=== PATIENT | female | born 1960 | race Caucasian/White ===

== ENCOUNTER 2021-11-10 19:50 | Emergency (ER) | payer OTHER ==
[2021-11-10] MEDS ORDERED: SODIUM CHLORIDE 1,000 ML IV STA (20:15)
[2021-11-10] MEDS ORDERED: ACETAMINOPHEN 1000 MG/100 ML BAG IVPB ONE (20:15)
[2021-11-10] MEDS ORDERED: FAMOTIDINE 20 MG/50 ML IVPB 20 MG/50 ML MG IVPB ONE ×2 (20:15→20:22)
[2021-11-10] MEDS ORDERED: ACETAMINOPHEN INJECTION 100 ML IVPB ONE (20:16)
[2021-11-10 20:17] VITALS: BP 148/93; PULSE 87; RESP 16; TEMP 98.7; BMI 27.4
[2021-11-10 20:23] LABS: HEMATOCRIT 41.6 % (32.4-45.2); HEMOGLOBIN 14.1 G/dL (10.7-15.3); MEAN CELL VOLUME 94.1 fl (80-96); MEAN PLT VOLUME 8.2 fl (7.5-11.1); RBC 4.42 10^6/uL (3.60-5.2); RDW 14.8 % (11.6-15.6); WHITE BLOOD COUNT 11.1 10^3/uL (4.0-10.8)
[2021-11-10 20:35] LABS: ALBUMIN 4.1 g/dl (3.4-5.0); ALK PHOS 86 U/L (45-117); ANION GAP 7 MMOL/L (8-16); BILIRUBIN,TOTAL 0.5 mg/dl (0.2-1); CALCIUM 9.3 mg/dl (8.5-10); CHLORIDE 104 mmol/L (98-107); CO2 26 mmol/L (21-32); CREATININE 0.9 mg/dl (0.55-1.3); GLUCOSE,RANDOM 119 mg/dl (74-106); SGOT/AST 16 U/L (15-37); SGPT/ALT 13 U/L (13-61); SODIUM 137 mmol/L (136-145); TOT PROT 7.4 g/dl (6.4-8.2)
[2021-11-10 20:35] LABS: PLATELET ESTIMATE ADEQUATE
[2021-11-10] MEDS ORDERED: LOPERAMIDE HCL 2 MG CAPSULE PO ONE (21:39)
[2021-11-10] MEDS ORDERED: LOPERAMIDE HCL 2 MG CAPSULE ONE (21:41)
== END 2021-11-10 21:51 | disposition home or self-care (01) ==
LOC: FER 19:50
PROC: 3E0333Z Introduction of Anti-inflammatory into Peripheral Vein, Percutaneous Approach (ICD-10-PCS; principal; 2021-11-10)
PROC: 3E033GC Introduction of Other Therapeutic Substance into Peripheral Vein, Percutaneous Approach (ICD-10-PCS; 2021-11-10)
PROC: 3E0337Z Introduction of Electrolytic and Water Balance Substance into Peripheral Vein, Percutaneous Approach (ICD-10-PCS; 2021-11-10)
DX: R19.7 Diarrhea, unspecified (principal)
CPT/HCPCS: 36415; 80053; 84443; 84484; 85027; 93005; 99283-25